=== PATIENT | male | born 1955 | race Asian ===

== ENCOUNTER 2025-01-04 13:58 | Emergency (ER) | payer MEDICARE, MEDICAID ==
[~2025-01-04] VITALS: Ht 185.4 cm; Wt 94.8 kg
[2025-01-04 14:00] VITALS: TEMP 98
[2025-01-04 15:15] LABS: PLATELET COUNT (AUTO) 227 K/uL (150-450); RED BLOOD CELL COUNT(AUTO) 4.86 MIL/uL (4.5-6.0); RED CELL DISTRIBUTION WIDTH 14.9 % (11.5-15.0); WHITE BLOOD COUNT (AUTO) 8.7 K/uL (4.3-11.0)
[2025-01-04 15:15] LABS: APPEARANCE,URINE SLIGHTLY CLOUDY (CLEAR); BLOOD, URINE 2+ Ery/uL (NEGATIVE); LEUKOCYTE ESTERASE ,URINE 1+ (NEGATIVE); NITRITE, URINE NEGATIVE (NEGATIVE); UGLUCOSE 3+ mg/dL (NEGATIVE)
[2025-01-04 15:20] LABS: ADD URINE CULTURE YES
[2025-01-04 15:24] LABS: CALCIUM, SERUM 8.5 mg/dL (8.5-10.1); CREATININE 1.3 mg/dL (0.6-1.3); SODIUM SERUM 142.0 mmol/L (136-145); UREA NITROGEN, BLOOD 24.0 mg/dL (7-18)
[2025-01-04 15:27] LABS: INR 1.03 (0.91-1.10)
[2025-01-04] MEDS ORDERED: CEPH-570 PO (15:36)
[2025-01-04] MEDS ORDERED: TAMS-12 PO (15:36)
[2025-01-04 15:57] VITALS: BP 132/78; O2SAT 98
== END 2025-01-04 15:52 | disposition home or self-care (01) ==
LOC: ER 14:06
DX: R31.9 Hematuria, unspecified (principal); R30.9 Painful micturition, unspecified; I11.9 Hypertensive heart disease without heart failure; E11.9 Type 2 diabetes mellitus without complications; E87.6 Hypokalemia; M10.00 Idiopathic gout, unspecified site; Z87.440 Personal history of urinary (tract) infections
CPT/HCPCS: 36415; 80048-TC; 81001; 85025-TC; 85730-TC; 87086-TC; 87186-TC